=== PATIENT | male | born 1965 | race Caucasian/White ===

== ENCOUNTER 2018-08-18 12:05 | Outpatient (CLI) | payer OTHER ==
--- NOTE | 2018-08-18 13:54 | MRI ---
MRI LEFT SHOULDER WITHOUT CONTRAST: 08/18/18 HISTORY: S49.92XD - injury of left shoulder subsequent encounter. COMPARISON: Radiographs 07/30/18. FINDINGS: BICEPS TENDON: Extra-articular biceps tendon is normal. Moderate intra-articular tendinosis. LABRUM: Tear throughout superior, posterior, inferior and anterior inferior labrum. Large inferior paralabral ganglion pseudocyst, similar. ROTATOR CUFF: There is a full thickness rupture anterior 1 cm supraspinatus tendon from the footprint with a 3 mm g ap. High grade tendinosis for the remainder of the tendon. Moderate tendinosis infraspinatus tendon. Mild tendinosis subscapularis as well as deep undersurface fiber partial tearing craniad fibers. BONES: Type II acromion. Mild degenerative disease acromioclavicular joint. MUSCLES: Muscle bulk is normal. No significant atrophy. Previously described mass in the subcutaneous soft tissues are not evaluated on this exam as it does not extend caudad enough and is out of field of view. IMPRESSION: 1. Conversion of the partial thickness supraspinatus tendon tear to a full thickness rupture ant erior 1 cm fibers in the footprint with a 3 mm gap. 2. Near circumferential labral tearing, similar. The paralabral ganglion pseudocyst at 6 o'clock is similar. POS: [facility]
== END 2018-08-18 12:06 | disposition home or self-care (01) ==
LOC: MRI 12:05
PROVIDERS: ATTEND Nurse Practitioner Family
DX: S49.92XD Unspecified injury of left shoulder and upper arm, subsequent encounter (principal); S46.811D Strain of other muscles, fascia and tendons at shoulder and upper arm level, right arm, subsequent encounter

== ENCOUNTER 2018-11-24 14:02 | Outpatient (CLI) | payer OTHER ==
[2018-11-24 15:22] LABS: #Eosinphils 0.2 thou/uL (0.0-0.7); #Lymphocytes 2.7 thou/uL (1.20-3.40); #Monocytes 0.3 thou/uL (0.11-0.59); #Neutrophils 5.5 thou/uL (1.40-6.50); %Basophils 0.2 % (0.0-1.0); %Eosinophils 2.3 % (0.0-10.0); %Lymphocytes 30.8 % (21.0-51.0); %Monocytes 3.6 % (0.0-10.0); %Neutrophils 63.2 % (42.0-75.0); Hemoglobin 15.2 g/dL (14.0-18.0); Mean Corpuscular HGB CONC 33.9 g/dL (32.0-36.0); Mean Corpuscular Volume 91.4 fL (78.0-98.0); Mean Platelet Volume 8.7 fL (7.4-10.4); Platelet Count 210 thou/uL (130-400); RBC Distribution Width 12.7 % (11.5-14.5); Red Blood Cell (RBC) Count 4.91 mill/uL (4.70-6.10); White Blood Cell (WBC) Count 8.6 thou/uL (4.8-10.8)
[2018-11-24 16:04] LABS: Anion Gap 16 mmol/L (10-20); BUN (Urea Nitrogen) 12 mg/dL (8.4-25.7); Calc. Creatinine Clearance 0 mL/min (70-130); Chloride 106 mmol/L (98-107); Estimated GFR-MDRD 74; Glucose 172 mg/dL (70-105); Potassium 3.7 mmol/L (3.5-5.1); Sodium 140 mmol/L (136-145)
[2018-11-24 16:20] LABS: Carbon Dioxide 22 mmol/L (22-29)
== END 2018-11-24 14:03 | disposition home or self-care (01) ==
LOC: LABBT 14:02
PROVIDERS: ATTEND Orthopaedic Surgery
DX: Z01.812 Encounter for preprocedural laboratory examination (principal); S46.012A Strain of muscle(s) and tendon(s) of the rotator cuff of left shoulder, initial encounter
CPT/HCPCS: 80048; 85025

== ENCOUNTER 2018-11-25 05:46 | Day surgery (SDC) | payer OTHER ==
[2018-11-24 14:15] VITALS: BMI 32.8
[2018-11-25] MEDS ORDERED: Fentanyl 100 MCG/2 ML VIAL ONE (06:39)
[2018-11-25] MEDS ORDERED: Midazolam HCl 2 mg/2 ml Vial ONE (06:39)
[2018-11-25] MEDS ORDERED: Lidocaine 1% (PF) 30 ML VIAL ONE (06:40)
[2018-11-25] MEDS ORDERED: Ketorolac Tromethamine 30 MG/ML VIAL IVP PRN (07:48)
[2018-11-25] MEDS ORDERED: HYDROcodone/Acetaminophen 10/325 mg Tablet PO PRN ×2 (07:48)
[2018-11-25] MEDS ORDERED: Ondansetron PF 4 MG/2 ML Vial IVP PRN (07:48)
[2018-11-25] MEDS ORDERED: Ropivacaine 0.2% 550 ML 550 ML NERVE BLCK SCH (07:48)
[2018-11-25] MEDS ORDERED: traMADol HCl 50 MG TAB PO PRN ×2 (07:48)
[2018-11-25] MEDS ORDERED: Promethazine HCl 25 MG/ML VIAL IM PRN (07:48)
[2018-11-25] MEDS ORDERED: Zolpidem Tartrate 5 MG TAB PO PRN (07:48)
[2018-11-25] MEDS ORDERED: Bupivacaine/Epinephrine 0.25% 30 ML VIAL ONE (07:56)
[2018-11-25] MEDS ORDERED: Ropivacaine 0.2% HCl/PF (40 MG/20 ML VIAL) ONE (09:42)
[2018-11-25] MEDS ORDERED: Ropivacaine 0.5% HCl/PF (150 MG/30 ML VIAL) ONE (09:42)
[2018-11-25] MEDS ORDERED: Ondansetron PF 4 MG/2 ML Vial ONE (09:48)
[2018-11-25] MEDS ORDERED: Lidocaine 1% PF 5 ML VIAL ONE (09:48)
[2018-11-25] MEDS ORDERED: Ketorolac Tromethamine 30 MG/ML VIAL ONE (09:48)
[2018-11-25] MEDS ORDERED: PROPOFOL 200 MG/20 ML VIAL ONE (09:48)
[2018-11-25] MEDS ORDERED: Rocuronium Bromide 10 MG/ML (10ML VIAL) ONE (09:48)
--- NOTE | 2018-11-25 10:37 | OP ---
DATE OF PROCEDURE: 11/25/2018 PREOPERATIVE DIAGNOSIS: Left full-thickness rotator cuff tear. POSTOPERATIVE DIAGNOSES: 1. Left high-grade near full-thickness rotator cuff leading edge supraspinatus. 2. Insertion of biceps sling supraspinatus and bicipital above the subscapularis partial tear. 3. Degenerative labral tear with paralabral cyst. 4. Synovitis. PROCEDURES PERFORMED: 1. Left arthroscopic rotator cuff repair number. 2. Limited debridement of labral tear, paralabral cyst. PHOTOGRAPHIC AIDE: Gaurang Mcneil PA-C ANESTHESIA: The patient received a general endotracheal intubation with interscalene block. ESTIMATED BLOOD LOSS: 30 mL. TOURNIQUET TIME: None. IMPLANTS: A 5.5 Corkscrew and a 4.5 SwiveLock. COMPLICATIONS: None. HISTORY OF PRESENT ILLNESS: Mr. Salinas is a 53-year-old male, who presented to me with left shoulder pain. Since June, he had immediate pop and left shoulder pain. I discussed with him the risks and benefits of arthroscopic evaluation for a left rotator cuff repair. The patient understood the risks and benefits of surgery, pain, scar, bleeding, infection, damage to vital structures, decreased range of motion and strength, despite surgical mention, the patient understood these risks and benefits and elected to proceed. DESCRIPTION OF PROCEDURE: Time-out was performed designating the patient's left upper extremity as the operative site, based on site, consent, and markings. After time-out, the patient's left upper extremity was prepped and draped in sterile fashion. I made a posterolateral working portal to visualize intra-articularly, saw degenerative labral tear that went from superiorly all the way down to about 6 o'clock to 7 o'clock position. There was biceps with synovitis. I saw the leading edge tear of the supraspinatus, which was torn off its footprint as well as portion of biceps sling insertion just above the subscapularis, debrided off that small portion of tear. I debrided the footprint. I then debriding the patient's paralabral labral tear, I did not repair, I just debrided the labral tear from superior to inferiorly. We pulled the biceps and it looked good throughout its course, had stable insertion, had some synovitis within the joint, but otherwise no full-thickness defects on the glenoid or humerus. I then moved subacromially. I debrided off the bursa off the subacromial space cleaning up the patient's rotator cuff interval, came down, found a soft spot, which had a slight soft tissue coverage, fell into the defect, debrided off and found the footprint. I placed a 5.5 Corkscrew, which I tapped into place. I passed 4 sutures in horizontal mattress fashion. I then used a double row to help to compress the cuff tear down. We then cut the final sutures, took final pictures, washed and closed. The patient will follow up in 2 weeks. We will begin passive range of motion of the elbow, wrist, and hand until followup. Begin passive range of motion and shoulder active range of motion for 12 weeks. Job ID: [id number]
== END 2018-11-25 12:20 | disposition home or self-care (01) ==
LOC: SDC 05:46
PROVIDERS: ATTEND Orthopaedic Surgery
PROC: 0LQ24ZZ Repair Left Shoulder Tendon, Percutaneous Endoscopic Approach (ICD-10-PCS; principal; 2018-11-25)
PROC: 3E0T3BZ Introduction of Anesthetic Agent into Peripheral Nerves and Plexi, Percutaneous Approach (ICD-10-PCS; principal; 2018-11-25)
PROC: 0RNK4ZZ Release Left Shoulder Joint, Percutaneous Endoscopic Approach (ICD-10-PCS; principal; 2018-11-25)
DX: S46.012A Strain of muscle(s) and tendon(s) of the rotator cuff of left shoulder, initial encounter (principal); S43.432A Superior glenoid labrum lesion of left shoulder, initial encounter; M65.812 Other synovitis and tenosynovitis, left shoulder; G89.18 Other acute postprocedural pain; Z79.1 Long term (current) use of non-steroidal anti-inflammatories (NSAID); Z79.899 Other long term (current) drug therapy
CPT/HCPCS: A4306; C1713; J0690; J2001; J2250; J2795; J3010

== ENCOUNTER 2021-10-26 10:38 | Emergency (ER) | payer OTHER, BC ==
[~2021-10-26 10:38] MED LIST: Iopamidol-370 76% 500 ML 1 ML ONE
[2021-10-26] MEDS ORDERED: Acetaminophen 325 MG TAB ONE (11:30)
[2021-10-26 12:16] LABS: #Basophils 0.1 thou/uL (0.0-0.2); #Eosinphils 0.3 thou/uL (0.0-0.7); #Monocytes 0.5 thou/uL (0.11-0.59); #Neutrophils 4.4 thou/uL (1.40-6.50); %Basophils 0.7 % (0.0-1.0); %Eosinophils 3.3 % (0.0-10.0); %Lymphocytes 35.8 % (21.0-51.0); %Monocytes 6.5 % (0.0-10.0); %Neutrophils 53.7 % (42.0-75.0); Hemoglobin 15.8 g/dL (14.0-18.0); Mean Corpuscular HGB CONC 33.6 g/dL (32.0-36.0); Mean Corpuscular Hemoglobin 30.5 pg (27.0-31.0); Mean Corpuscular Volume 90.8 fL (78.0-98.0); Mean Platelet Volume 8.5 fL (7.4-10.4); Platelet Count 201 thou/uL (130-400); RBC Distribution Width 12.7 % (11.5-14.5); White Blood Cell (WBC) Count 8.2 thou/uL (4.8-10.8)
[2021-10-26 12:41] LABS: ALT (SGPT) 40 U/L (8-55); AST (SGOT) 22 U/L (5-34); Albumin 4.1 g/dL (3.5-5.0); Alkaline Phosphatase 57 U/L (40-110); Anion Gap 16 mmol/L (10-20); BUN (Urea Nitrogen) 10 mg/dL (8.4-25.7); Bilirubin, Total 0.4 mg/dL (0.2-1.2); Calc. Creatinine Clearance 0 mL/min (70-130); Calcium 8.8 mg/dL (7.8-10.44); Carbon Dioxide 23 mmol/L (22-29); Chloride 105 mmol/L (98-107); Estimated GFR 102; Globulin 2.5 g/dL (2.4-3.5); Glucose 102 mg/dL (70-105); Potassium 4.1 mmol/L (3.5-5.1); Protein, Total 6.6 g/dL (6.0-8.3); Sodium 140 mmol/L (136-145)
== END 2021-10-26 13:43 | disposition home or self-care (01) ==
LOC: ERS 10:38
DX: S81.001A Unspecified open wound, right knee, initial encounter (principal); S00.01XA Abrasion of scalp, initial encounter; M25.512 Pain in left shoulder; R51.9 Headache, unspecified; I25.10 Atherosclerotic heart disease of native coronary artery without angina pectoris; I10 Essential (primary) hypertension; V43.62XA Car passenger injured in collision with other type car in traffic accident, initial encounter; Z79.899 Other long term (current) drug therapy
CPT/HCPCS: 36415; 70450; 70486; 74177; 80053; 85025; Q9967

== ENCOUNTER 2022-01-14 08:01 | Outpatient (CLI) | payer BC | END 2022-01-14 08:02 | disposition home or self-care (01) | LOC: SCSMRI 08:01 | PROVIDERS: ATTEND Nurse Practitioner Family | DX: S49.92XD Unspecified injury of left shoulder and upper arm, subsequent encounter (principal); N42.32 Atypical small acinar proliferation of prostate; S43.402A Unspecified sprain of left shoulder joint, initial encounter; M75.102 Unspecified rotator cuff tear or rupture of left shoulder, not specified as traumatic; M25.812 Other specified joint disorders, left shoulder; Z98.890 Other specified postprocedural states ==

== ENCOUNTER 2022-06-26 14:53 | Outpatient (CLI) | payer BC ==
[2022-06-26 16:28] LABS: Bilirubin Neg (Negative); Blood, Urine Negative (Negative); Clarity Clear (Clear); Glucose, Urine (Dipstick) Normal (Negative); Ketone, Urine Negative (Negative); Leukocyte Negative (Negative); Nitrite Negative (Negative); Protein, Urine (Dipstick) Negative (Neg-Trace); Specific Gravity, Urine 1.025 (1.005-1.030)
[2022-06-26 16:57] LABS: Bacteria/HPF Rare-Few HPF (None Seen); RBC/HPF 0-3 HPF (0-3); Squamous Epithelial 0-3 HPF (0-3); WBC/HPF 0-3 HPF (0-3)
[2022-06-26 17:03] LABS: Hemoglobin 14.6 g/dL (13.5-17.5); Mean Corpuscular HGB CONC 32.9 g/dL (32.0-36.0); Mean Corpuscular Hemoglobin 28.9 pg (27.0-33.0); Mean Corpuscular Volume 87.9 fl (81.2-95.1); Mean Platelet Volume 11.2 fl (7.4-10.4); Platelet Count 259 10x3/uL (150-450); RBC Distribution Width 13.2 % (11.5-14.5); Red Blood Cell (RBC) Count 5.05 10x6/uL (4.32-5.72); White Blood Cell (WBC) Count 9.4 10x3/uL (3.5-10.5)
[2022-06-26 17:16] LABS: Anion Gap 15 mmol/L (10-20); BUN (Urea Nitrogen) 13 mg/dL (8.4-25.7); Calc. Creatinine Clearance 0 mL/min (70-130); Calcium 8.9 mg/dL (7.8-10.44); Carbon Dioxide 23 mmol/L (22-29); Chloride 106 mmol/L (98-107); Estimated GFR 100; Glucose 122 mg/dL (70-105); PTT 27.6 sec (22.0-33.0); Potassium 3.8 mmol/L (3.5-5.1); Prothrombin Time 10.7 sec (9.5-12.1); Sodium 140 mmol/L (136-145)
== END 2022-06-26 14:54 | disposition home or self-care (01) ==
LOC: LABBT 14:53
PROVIDERS: ATTEND Urology
DX: Z01.818 Encounter for other preprocedural examination (principal); Z12.5 Encounter for screening for malignant neoplasm of prostate; N42.32 Atypical small acinar proliferation of prostate; N40.1 Benign prostatic hyperplasia with lower urinary tract symptoms; I25.10 Atherosclerotic heart disease of native coronary artery without angina pectoris; N52.9 Male erectile dysfunction, unspecified; R97.20 Elevated prostate specific antigen [PSA]; Z87.891 Personal history of nicotine dependence; Z98.890 Other specified postprocedural states
CPT/HCPCS: 80048; 81001; 85027; 85610; 85730; 87086; 93005; 93010

== ENCOUNTER 2022-07-09 08:00 | Day surgery (SDC) | payer BC ==
[2022-06-26 15:37] VITALS: BMI 30.6
[2022-07-09] MEDS ORDERED: fentaNYL 50 mcg/mL 1 mL Vial ONE (08:38)
[2022-07-09] MEDS ORDERED: Propofol 500 MG/50 ML VIAL ONE (08:38)
[2022-07-09] MEDS ORDERED: Midazolam HCl 2 mg/2 ml Vial ONE (08:38)
[2022-07-09] MEDS ORDERED: Famotidine/PF 20 mg/2ml Vial ONE (08:38)
[2022-07-09] MEDS ORDERED: Ondansetron PF 4 MG/2 ML Vial ONE ×2 (08:38→10:44)
[2022-07-09] MEDS ORDERED: Levofloxacin 500 mg/D5W 100 ml Premix Bag ONE (09:56)
[2022-07-09] MEDS ORDERED: Ketorolac Tromethamine 30 MG/ML VIAL ONE (10:44)
== END 2022-07-09 13:25 | disposition home or self-care (01) ==
LOC: SDC 08:00
PROVIDERS: ATTEND Urology
PROC: 0T7D8DZ Dilation of Urethra with Intraluminal Device, Via Natural or Artificial Opening Endoscopic (ICD-10-PCS; principal; 2022-07-09)
DX: N40.1 Benign prostatic hyperplasia with lower urinary tract symptoms (principal); N52.9 Male erectile dysfunction, unspecified; I10 Essential (primary) hypertension; I25.10 Atherosclerotic heart disease of native coronary artery without angina pectoris; M54.30 Sciatica, unspecified side; Z87.891 Personal history of nicotine dependence; Z79.620 Long term (current) use of immunosuppressive biologic; Z79.82 Long term (current) use of aspirin; Z79.84 Long term (current) use of oral hypoglycemic drugs; Z79.899 Other long term (current) drug therapy
CPT/HCPCS: J1885; J1956; J2250; J2405; J2704; J3010; L8699; S0028